=== PATIENT | female | born 1995 | race African-American/Black ===

== ENCOUNTER 2018-08-24 19:33 | Emergency (ER) | payer BC, MEDICAID ==
[~2018-08-24] VITALS: Ht 165.1 cm; Wt 81.6 kg
[~2018-08-24 19:33] MED LIST: BENADRYL50 MG ORAL; CLINDAMYCIN HC300 MG ORAL; NKM; ZOFRAN ODT4 MG PO
[2018-08-24 20:25] VITALS: BP 116/71
[2018-08-24] MEDS ORDERED: TYLENOL EXTRA500 MG ORAL (20:33)
[2018-08-24] MEDS ORDERED: TESSALON PERLE100 MG ORAL (20:33)
--- NOTE | 2018-08-24 20:33 | Emergency Room Report ---
History of Present Illness General Chief Complaint: Flu Like Symptoms Source: Patient Present Illness HPI 23-year-old female patient presents the ER complaining of cough and sore throat for the past 2 weeks. Reports cough with mucus. Denies fever, chest pain, shortness of breath. Denies recent travel outside the country. Denies recent periods of immobilization. Denies shortness of breath. Denies calf pain. Reports not taking medication for relief cough symptoms. Reports mild blood noted after repeated cough symptoms, states saw blood once. Denies night sweats. Denies smoking cigarettes, reports history of smoking marijuana intermittently. Denies control medication. Also complaining of sore throat and earache during this time. Denies other aggravating or relieving factors. Reports receive flu vaccine this year. Allergies: Coded Allergies: No Known Allergies (Unverified , 06/20/12) Patient History Past Medical History: see triage record Last Menstrual Period: 07/25/2018 Reviewed Nursing Documentation: PMH: Agreed; PSxH: Agreed Nursing Documentation-PMH Past Medical History: No Stated History Review of Systems All Other Systems: negative except mentioned in HPI Physical Exam Vital Signs Date Time Temp Pulse Resp B/P (MAP) Pulse Ox O2 Delivery O2 Flow Rate FiO2 08/24/18 19:42 98.2 83 12 118/74 99 Room Air Sp02 EP Interpretation: reviewed, normal General Appearance: well appearing, no apparent distress, alert, GCS 15, non- toxic Head: normocephalic, atraumatic Eyes: bilateral eye normal inspection, bilateral eye PERRL ENT: hearing grossly normal, normal pharynx, no angioedema, normal voice, TMs + canals normal, uvula midline, moist mucus membranes, other - Epiglottis visualized, uvula midline, no exudates, no erythema Neck: full range of motion Respiratory: lungs clear, normal breath sounds, no rhonchi, no respiratory distress, no accessory muscle use, no wheezing, speaking full sentences Cardiovascular #1: regular rate, rhythm, no edema Gastrointestinal: non tender, soft, no mass, non-distended, no guarding, no rebound Genitourinary: no CVA tenderness Musculoskeletal: back normal, digits/nails normal, gait/station normal, normal range of motion, non-tender Neurologic: alert, oriented x3, responsive, motor strength/tone normal, sensory intact Psychiatric: mood/affect normal Skin: no rash Lymphatic: no adenopathy Medical Decision Making PA Attestation Dr. Pugh is my supervising Physician whom patient management has been discussed with. Diagnostic Impression: Primary Impression: Upper respiratory infection ER Course Pt presents to ED c/o cough and sore throat x2 weeks. DDX considered but are not limited to influenza, viral URI, pneumonia, strep throat, rhinitis, sinusitis, otitis media, otitis externa. VITAL SIGNS are WNL, patient is afebrile. ER COURSE: Lungs clear to auscultation, no wheezes, rhonci or rales. patient afebrile. Patient not observed coughing while in the ER. Low suspicion for pneumonia, CXR shows no acute disease or consolidation per the preliminary reading. no tonsillar exudates, no pharyngeal erythema, history of cough, no fever, no stridor, uvula midline, low suspicion for peritonsillar abscess. Likely viral etiology of symptoms. Symptomatic treatment. drink plenty of fluids. Salt water gargles for sore throat. Followup with PCP for further treatment and/or referral as needed. ER precautions given. DISCHARGE: At this time pt is stable for d/c to home. Patient is resting comfortably, in no acute distress, nontoxic appearing. Patient to take medications as instructed Will provide with patient care instructions and any necessary prescriptions. Care plan and follow-up instructions provided. Patient instructed to follow-up with primary care provider in 3 - 5 days. Patient questions asked and answered. Patient reports understanding and agreement to treatment plan. ER precautions given. Patient instructed to return to ER immediately for any new or worsening of symptoms including but not limited to increasing SOB, persistent fever, intractable vomiting. - Please note that this Emergency Department Report was dictated using [employer] technology software, occasionally this can lead to erroneous entry secondary to interpretation by the dictation equipment. Chest X-Ray Diagnostic Results Chest X-Ray Diagnostic Results : Chest X-Ray Ordered: Yes # of Views/Limited/Complete: 1 View Indication: Chest Pain EP Interpretation: Yes OLGA Xray: Interpretation reviewed, by supervising MD, and agrees with findings. Interpretation: no consolidation, no effusion, no pneumothorax, no acute cardiopulmonary disease Impression: No acute disease OLGA Scribcm Text Edward Bhandari PA-C Last Vital Signs Date Time Temp Pulse Resp B/P (MAP) Pulse Ox O2 Delivery O2 Flow Rate FiO2 08/24/18 19:42 98.2 83 12 118/74 99 Room Air Disposition: HOME, SELF-CARE Condition: Stable Scripts Acetaminophen* (TYLENOL EXTRA STRENGTH*) 500 Mg Tablet 500 MG ORAL Q8H PRN for Prn Headache/Temp > 101, #30 TAB 0 Refills Prov: Francois Bhandari 08/24/18 Benzonatate* (TESSALON PERLE*) 100 Mg Capsule 100 MG ORAL THREE TIMES A DAY, #20 PERLE Prov: Francosi Bhandari 08/24/18 Referrals: NOT CHOSEN IPA/,REFERRING (PCP) Patient Instructions: Upper Respiratory Infection, Adult, [id number] Additional Instructions: Followup with primary care provider in 3 -5 days. Take medications as directed. Patient questions asked and answered. ER precautions given, patient instructed to return to ER immediately for any new or worsening of symptoms. Francois Bhandari Aug 24, 2018 20:33
[2018-08-24 20:46] VITALS: BP 114/73
--- NOTE | 2018-08-24 20:59 | Diagnostic Imaging Report ---
History: COUGH Exam: XR CXR 1 VIEW Comparison: None available FINDINGS: The lungs are clear. The cardiac and mediastinal contours are within limits. The visualized osseous structures appear within limits. IMPRESSION: No evidence of acute disease.
== END 2018-08-24 20:46 | disposition home or self-care (01) ==
LOC: EMR 20:12
DX: J06.9 Acute upper respiratory infection, unspecified (principal)
CPT/HCPCS: 71045; 99283